=== PATIENT | male | born 1955 | race Caucasian/White ===

== ENCOUNTER → 2024-08-21 09:35 | Outpatient (REF) | payer OTHER, SELFPAY | LOC: HWRAD 09:35 | PROVIDERS: ATTENDING PHYSICIAN Family Medicine | DX: R05.3 Chronic cough (principal) | CPT/HCPCS: 71046 ==

== ENCOUNTER 2025-01-23 11:36 | Observation (INO) | payer OTHER, SELFPAY ==
[2025-01-23] VITALS (8 sets, daily range): BP systolic 120–146; BP diastolic 81–97; BMI 21.2
[2025-01-23 08:24] LABS: % Basophils 0.5 % (0-2); % Eosinophils 0.3 % (0-6); % Immature Granulocytes 0.7 % (0-0.5); % Lymphocytes 9.3 % (20.5-51.1); % Monocytes 13.6 % (1.7-9.3); % Neutrophils 75.6 % (42.2-75.2); Absolute Basophils 0.1 10^3/uL (0-0.2); Absolute Eosinophils 0.1 10^3/uL (0-0.7); Absolute Immature Granulocytes 0.1 10^3/uL (0-0.05); Absolute Lymphocytes 1.5 10^3/uL (1.2-3.4); Absolute Monocytes 2.2 10^3/uL (0.1-0.6); Absolute Neutrophils 12.4 10^3/uL (1.4-6.5); Hemoglobin 14.9 g/dL (13.0-18.0); Mean Corp Hgb Conc. 33.9 g/dL (33.0-37.0); Mean Corpuscular Hgb 31.7 pg (27.0-31.0); Mean Corpuscular Volume 93.6 fL (80.0-94.0); Mean Platelet Volume 9.5 fL (7.4-10.4); Nucleated Red Blood Cells % 0 % (-); Platelet Count 214 10^3/uL (130-400); Red Cell Dist. Width 13.2 % (11.5-14.5); White Blood Cell Count 16.4 10^3/uL (4.8-10.8)
[2025-01-23 08:42] LABS: COVID-19 Antigen Negative (Negative)
[2025-01-23 08:46] LABS: ALT (SGPT) 22 U/L (0-50); AST (SGOT) 25 U/L (17-59); Albumin 4.4 g/dl (3.5-5.0); Alkaline Phosphatase 107 U/L (38-126); Blood Urea Nitrogen 26 mg/dl (9-20); Calcium 9.6 mg/dl (8.4-10.2); Carbon Dioxide 27 mmol/L (22-30); Chloride 104 mmol/L (98-107); Glucose 119 mg/dl (70-99); Potassium 4.5 mmol/L (3.5-5.1); Sodium 140 mmol/L (135-145); Total Bilirubin 0.7 mg/dl (0.2-1.3); Total Protein 7.7 g/dl (6.3-8.2); eGFR > 60.00
--- NOTE | 2025-01-23 09:36 | ED.GENMED ---
History of Present Illness
General
Chief Complaint: Breathing Problem
Time Seen by Provider: 01/23/25 09:36
History of Present Illness
History of Present Illness:
TIME OF INITIAL ENCOUNTER: 9:40 AM
HPI: Patient presents with increasing sputum production associated with cough. He has rather significant symptoms of shortness of breath when he lays back flat. He shows me his yellow-green sputum which is very thick. At 1 point he described a
coughing fit and had a little bit of blood in the sputum but currently there is no blood in the sputum. He reports shortness of breath. He continues to smoke 1 pack/day.
EXAM:
GENERAL: The patient appears somewhat dyspneic
HEENT: Hard of hearing, wearing hearing aids
CARDIOVASCULAR: No murmurs, normal heart rate, regular rhythm, No chest wall tenderness
PULMONARY: Mild respiratory distress, increased work of breathing, markedly decreased breath sounds with wheeze
ABDOMEN: Soft with no peritoneal signs, no tenderness
NEUROLOGIC: Excellent strength all extremities, no coordination deficits
PSYCHIATRIC: Appropriate mental status, normal insight and judgement
EXTREMITIES: Nontender, no edema, moves all extremities equally
SKIN: No rash, no lesions
NUMBER AND COMPLEXITY OF PROBLEMS ADDRESSED AT THE ENCOUNTER
� Chronic conditions affecting care: Non-Hodgkin's lymphoma
� Acute Exacerbation and/or Progression of Chronic Illness: This is an acute problem
� Differential Diagnosis includes: Undiagnosed COPD, bronchitis, chronic bronchitis, pneumonia
AMOUNT AND/OR COMPLEXITY OF DATA TO BE REVIEWED AND ANALYZED
� I performed an independent evaluation of and my interpretation is:
EKG: Sinus 104, baseline artifact, suspect LAE based on inverted P wave in V2
CT:
X-rays: Chest x-ray shows no acute abnormality however is suggestive of COPD
Laboratory Studies: White count 16.4(New), chemistries unremarkable, COVID flu negative,
Other:
� Review of other/old records: I reviewed records, the patient had a stress echo in 2021 that showed no regional wall motion abnormality and normal EF
� Clinical information was obtained by an independent historian: None needed
� Prescriptions/Medications Considered but not given:
� Further testing considered but not performed:
RISK OF COMPLICATIONS AND/OR MORBIDITY OR MORTALITY OF PATIENT MANAGEMENT
� Social determinants of health affecting care: Lives at home, is a smoker
� Discussion with other providers: Dr. Rice for admission
� Escalation of care including admission/observation vs risk of discharge considered: The patient presents with shortness of breath, wheeze, sputum production, and is a 1 pack/day smoker. Although chest x-ray shows no acute
abnormality, it is suggestive of COPD. Giving nebs, steroids, and I did give a dose of azithromycin.
ANY OTHER UPDATES:
Past History
Past History
ED Past Medical History: Negative None
ED Past Surgical History: Other (bilateral ingunial hernia repair as a child)
Social History
Tobacco: Smoker (1ppd)
Alcohol: Occasional
Drug: None
Personal:
Living: with family
Phy Exam
Physical Exam
Physical Exam:
See HPI
Scores
Heart Failure Risk
Heart Failure Risk Score: Not Applicable
Course
Orders/Labs/Results
Orders:
Orders
01/23/25 07:34
Electrocardiogram (*1) Urgent
Reason for Study: Shortness of Breath
EKG- Treatment ONCE
Chest [CR Chest - 2 Views ] Urgent
Comment:
Reason For Exam: cough
01/23/25 08:09
COVID-19 Antigen Urgent
Source: Nasal Swab
Complete Blood Count/With Diff Urgent
Comprehensive Metabolic Panel Urgent
Influenza A+B Rapid Molecular Urgent
ROZ Source: Nasal Swab
Specimen Description:
01/23/25 09:45
Ipratropium/Albuterol Sulfate [Duoneb] 3 ml INH R NOW STA
MethylPREDNISolone PF [Solu-Medrol Pf] 125 mg IV NOW STA
01/23/25 09:46
Azithromycin 500 mg/250 ml [Zithromax Infusion] 500 mg in 250 ml IV NOW
Ipratropium/Albuterol Sulfate [Duoneb] 3 ml INH R NOW STA
01/23/25 11:18
Admit/Transfer Patient As Directed
Co-Sign Provider:
Level of Care: Observation services
Assign to:: Medical/Surgical
Physician / Group: Hospitalist
Diagnosis: Acute bronchitis, Acute hypoxic resp insufficiency
Code Status As Directed
Resuscitation Status: Full Code
PRN Pain Medication Management As Directed
May give lesser potent ordered pain med per pt: Yes
preference::
Protocol:: Medication orders for pain may be administered in a
manner that supports deferring to patient preference
when the pt is:
- Requesting an ordered lesser potent pain medication.
Least to most potent pain medications are defined
as: acetaminophen < NSAID < tramadol < opioids
(morphine, oxycodone, hydromorphone).
- Requesting a lesser dose of the same medication IF
ORDERED.
- Requesting a less intrusive route of administration
if both routes are prescribed by the provider (PO <
IV).
01/23/25 11:20
Respiratory Culture/Gram Stain Urgent
ROZ Source: Sputum
Specimen Description:
01/23/25 11:25
Urinalysis Reflex To Culture Routine
Abnormal Lab Results
01/23/25
08:09
WBC 16.4 H 10^3/uL
(4.8-10.8)
MCH 31.7 H pg
(27.0-31.0)
Abs Immat Gran (auto) 0.1 H 10^3/uL
(0-0.05)
Absolute Neuts (auto) 12.4 H 10^3/uL
(1.4-6.5)
Absolute Monos (auto) 2.2 H 10^3/uL
(0.1-0.6)
Immature Gran % 0.7 H %
(0-0.5)
Neutrophils % 75.6 H %
(42.2-75.2)
Lymphocytes % 9.3 L %
(20.5-51.1)
Monocytes % 13.6 H %
(1.7-9.3)
BUN 26 H mg/dl
(9-20)
Glucose 119 H mg/dl
(70-99)
01/23/25 08:09
01/23/25 08:09
Vital Signs
Initial and Last Documented VS:
Initial Vital Signs
Temp Pulse Resp BP Pulse Ox
37.4 C 110 20 132/86 90
01/23/25 07:37 01/23/25 07:37 01/23/25 07:37 01/23/25 07:37 01/23/25 07:37
Last Documented Vital Signs
Temp Pulse Resp BP Pulse Ox
37.4 C 106 35 123/81 98
01/23/25 07:37 01/23/25 11:00 01/23/25 10:10 01/23/25 11:00 01/23/25 10:45
*Critical Care Note
Total Time (30-74mins, 75-104mins- exclusive of procedures): Not Applicable
ED Attending Note
-
Portions of this chart may have been created with voice recognition software.� Occasional wrong word or��sound alike� substitutions may have occurred due to the inherent limitations of voice recognition software.
Discharge Plan
Departure
Patient Disposition: Admit
Date of Disposition: 01/23/25
Time of Disposition: 09:51
Presentation/result/management discussed w/ accepting MD/DO: Hospitalist
Discharge Problem:
Bronchitis
Prescriptions:
No Action
cephalexin [Keflex] 500 MG capsule
500 mg PO Q6 Qty: 28 0RF
hydrocodone-acetaminophen [Vicodin] 1 EACH tablet
1 ea PO Q6HPRN PRN (Reason: pain) Qty: 12 0RF
Referrals:
Jackson Miller MD [Family Provider] -
Interventions
Interventions:
*Risk Screen - Suicide Last Done: 01/23/25 07:37
*General Assessment Last Done: 01/23/25 07:37
ED- Cardiac Assessment Last Done: 01/23/25 10:11
ED- Pulmonary Assessment Last Done: 01/23/25 10:10
Discharge Date and Time
Print Language: COLOMBIAN
[2025-01-23] MEDS: DUONEB 3 ML INH ×3 (10:02→20:35)
[2025-01-23] MEDS: ZITHROMAX INFUSION 250 IV (10:05)
[2025-01-23] MEDS: SOLU-MEDROL PF 125 MG IV (10:05)
--- NOTE | 2025-01-23 10:24 | HPS.HSE ---
Family Physician
-
Family Physician: Jackson Miller
Chief Complaint
-
Cough with sputum production
History of Present Illness
69-year-old male presented to the hospital with cough and sputum production. Also had some wheezing sputum is yellowish-green in color. Patient still smokes a pack a day. [place] warm the other day. No chest pain.
Medical History
Past Medical History
Past Medical History: Reports Other
Additional Past Medical History:
Arthritis, large B-cell lymphoma diagnosed 11 years ago and treated at [facility] in remission
Past Surgical History: Reports Other
Additional Past Surgical History:
Bilateral hernia repair
Social History
Tobacco: Smoker (1 pack a day)
Alcohol: None
Employment: Employed ([employer] Coordinator)
Family History
Family History: Not pertinent
Allergies / Home Medications
Allergies reflects when Allergies were last updated in [employer].
Home Medications with original date entered in [employer]
Allergy/Medication List:
Not on any medicines
Review of Systems
-
A 12 point ROS was completed and negative except as noted: Yes
Respiratory: Reports Cough and Trouble Breathing
Cardiac: Denies Chest Pain
: Reports Frequency; Denies Dysuria
Physical Exam
Vital Signs
Vital Signs
Temp Pulse Resp BP Pulse Ox
99.3 F 102 35 146/96 93
01/23/25 07:37 01/23/25 10:10 01/23/25 10:10 01/23/25 10:00 01/23/25 10:10
Physical Exam
General: Other (cough)
Respiratory: Rhonchi
Cardiac: S1/S2 and Regular Rhythm
GI: Soft and Normal Bowel Sounds
Neuro: Awake, AO x 3 and Nonfocal/grossly intact
Psych: Intact Judgment/Insight
Laboratory Results
-
01/23/25 08:09
01/23/25 08:09
Laboratory Results
Total Bilirubin 0.7 mg/dl (0.2-1.3) 01/23/25 08:09
AST 25 U/L (17-59) 01/23/25 08:09
ALT 22 U/L (0-50) 01/23/25 08:09
Alkaline Phosphatase 107 U/L (38-126) 01/23/25 08:09
Data Reviewed
-
Diagnostic Radiology: Image Personally Visualized and interpreted (Chest x-ray reviewed by me-no acute changes. Hyperinflated lungs)
Impression/Plan
-
IMPRESSION/PLAN:
# Acute hypoxic respiratory insufficiency
Likely secondary to acute bronchitis
Possible undiagnosed COPD with exacerbation
Patient needs to stop smoking-cessation counseling
Admit to observation
Nebulizer treatments 4 times daily and as needed
Mucolytic's
Antibiotics-Zithromax
Oxygen supplementation as needed
Steroids-Decadron 4 IV every 8
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
# History of diffuse large B-cell lymphoma treated at [facility] 11 years ago-in remission
# Increased urinary frequency-check urinalysis. Patient thinks that he has prostate issues. Add Flomax. He is aware that he still needs to follow-up with urologist but he is uncomfortable with rectal exam importance of following up to screen for
cancer discussed with the patient.
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 DDD C6/C7
# Active smoker-cessation counseling. Patient declined nicotine patch
# DVT prophylaxis-Lovenox
# Full code
[2025-01-23] MEDS: DUONEB INH ×3 (12:49→16:26)
[2025-01-23] MEDS: MUCINEX 600 MG PO ×2 (13:49→21:35)
[2025-01-23] MEDS: DECADRON 4 MG IV ×2 (13:49→21:35)
[2025-01-23] MEDS: LOVENOX 40 MG SC (17:00)
[2025-01-23 18:59] LABS: Urine Albumin 2+ (Neg - Trace); Urine Bilirubin Negative (Negative); Urine Character Slightly Cloudy (Clear); Urine Color Yellow; Urine Glucose 3+ (Negative); Urine Ketone 2+ (Negative); Urine Leukocyte Negative (Negative); Urine Nitrite Negative (Negative); Urine Occult Blood 1+ (Negative); Urine Specific Gravity 1.025 (<1.030); Urine Urobilinogen 1+ (Neg - 1+)
[2025-01-23 19:11] LABS: Urine Squamous Cell 0-2 /LPF (Few)
[2025-01-23 19:14] LABS: Urine Mucus Few
[2025-01-23 19:15] LABS: Urine Bacteria Few (Negative); Urine White Cell 16-20 /HPF (0-5)
[2025-01-23] MEDS: PULMICORT 0.5 MG INH (20:35)
[2025-01-23] MEDS: FLOMAX 0.4 MG PO (21:35)
[2025-01-24] MEDS: DECADRON 4 MG IV ×2 (04:03→13:15)
[2025-01-24 07:00] VITALS: BP 121/82
[2025-01-24 07:03] LABS: Blood Urea Nitrogen 33 mg/dl (9-20); Calcium 9.2 mg/dl (8.4-10.2); Carbon Dioxide 30 mmol/L (22-30); Chloride 107 mmol/L (98-107); Estimated Creatinine Clearance 101 ml/min; Glucose 176 mg/dl (70-99); Sodium 140 mmol/L (135-145); eGFR > 60.00
[2025-01-24] MEDS: DUONEB 3 ML INH ×4 (07:25→19:47)
[2025-01-24] MEDS: PULMICORT 0.5 MG INH ×2 (07:25→19:47)
[2025-01-24] MEDS: ZITHROMAX 500 MG PO (10:07)
[2025-01-24] MEDS: MUCINEX 600 MG PO ×2 (10:07→20:39)
[2025-01-24] MEDS: STERILE WATER FOR INJECTION 10 ML IV (10:07)
[2025-01-24] MEDS: ROCEPHIN 1000 MG IV (10:07)
[2025-01-24 15:00] VITALS: BP 132/81
--- NOTE | 2025-01-24 15:36 | W.PN.HOSP.TC ---
Today's Communication/Plan
-
Wean oxygen as tolerated
Continue antibiotics
Wait for urine cultures and sputum cultures
Assessment / Plan
Assessment / Plan
69-year-old man with shortness of breath and cough
Feels better
CVS: S1-S2 normal
Chest: Short rhonchi, better air entry
Abdomen: Soft, NT / Bowel sounds present
Extremities: No edema, normal pulses
TAPER OPERATOR: Non focal exam
# Acute hypoxic respiratory insufficiency
Likely secondary to acute bronchitis
Possible undiagnosed COPD with exacerbation
Patient needs to stop smoking-cessation counseling
Nebulizer treatments 4 times daily and as needed
Mucolytic's
Antibiotics-Zithromax
Oxygen supplementation as needed, wean as tolerated
Steroids-Decadron 3 mg IV every 12
# Abnormal urinalysis-treat as UTI until cultures are back. Add ceftriaxone
# Hyperglycemia secondary to steroids
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
# History of diffuse large B-cell lymphoma treated at [facility] 11 years ago-in remission
# Increased urinary frequency-check urinalysis. Patient thinks that he has prostate issues. Added Flomax. He is aware that he still needs to follow-up with urologist but he is uncomfortable with rectal exam importance of following up to screen
for cancer discussed with the patient.
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 DDD C6/C7
# Active smoker-cessation counseling. Patient declined nicotine patch
# DVT prophylaxis-Lovenox
# Full code
Anticipated Discharge: Within 24 hours
Subjective/Interval History
-
Date of Service: January 24, 2025
Objective Data
-
Labs:
Laboratory Results
01/24/25
06:22
Sodium 140
Potassium 5.0
Chloride 107
Carbon Dioxide 30
BUN 33 H
Creatinine 0.7
Glucose 176 H
Calcium 9.2
Vital Signs:
Vital Signs
Temp Pulse Resp BP Pulse Ox
97.9 F 86 18 121/82 93
01/24/25 07:00 01/24/25 15:26 01/24/25 15:26 01/24/25 07:00 01/24/25 13:27
I&O
01/23/25 01/24/25 01/25/25
06:59 06:59 06:59
Output Total 300 / 300
Balance -300 / -300
--- NOTE | 2025-01-24 16:26 | CM ---
GUERIN letter given, along with AD information, case therapist reviewed patient's chart and met with patient and patient lives with his spouse and grandson, patient is independent with adl's and ambulation, patient is working, patient is on oxygen and
did not require oxygen prior to admission.
PCP Dr. Miller
Pharmacy: [facility]
Plan; Home when stable, check for any oxygen needs at discharge.
[2025-01-24] MEDS: LOVENOX 40 MG SC (18:01)
[2025-01-24] MEDS: DECADRON 3 MG IV (20:39)
[2025-01-24] MEDS: FLOMAX 0.4 MG PO (20:39)
[2025-01-24 23:52] VITALS: BP 130/81
[2025-01-25] MEDS: DECADRON 3 MG IV ×2 (04:06→09:11)
[2025-01-25 04:55] LABS: Hematocrit 39.3 % (39.0-52.0); Mean Corp Hgb Conc. 33.1 g/dL (33.0-37.0); Mean Corpuscular Hgb 31.9 pg (27.0-31.0); Mean Corpuscular Volume 96.3 fL (80.0-94.0); Mean Platelet Volume 9.8 fL (7.4-10.4); Platelet Count 249 10^3/uL (130-400); Red Blood Cell Count 4.08 10^6/uL (4.70-6.10); Red Cell Dist. Width 13.5 % (11.5-14.5); White Blood Cell Count 19.9 10^3/uL (4.8-10.8)
[2025-01-25 05:23] LABS: Blood Urea Nitrogen 31 mg/dl (9-20); Calcium 9.5 mg/dl (8.4-10.2); Carbon Dioxide 29 mmol/L (22-30); Chloride 106 mmol/L (98-107); Estimated Creatinine Clearance 118 ml/min; Glucose 137 mg/dl (70-99); Potassium 5.1 mmol/L (3.5-5.1); Sodium 140 mmol/L (135-145); eGFR > 60.00
[2025-01-25 07:00] VITALS: BP 138/87
[2025-01-25] MEDS: DUONEB 3 ML INH ×4 (07:50→19:56)
[2025-01-25] MEDS: PULMICORT 0.5 MG INH ×2 (07:54→19:55)
[2025-01-25] MEDS: ZITHROMAX 500 MG PO (07:59)
[2025-01-25] MEDS: MUCINEX 600 MG PO ×2 (07:59→20:59)
[2025-01-25] MEDS: ROCEPHIN 1000 MG IV (09:13)
[2025-01-25] MEDS: STERILE WATER FOR INJECTION 10 ML IV (09:13)
--- NOTE | 2025-01-25 11:17 | CM ---
CM reviewed chart, patient seen bedside. Patient currently off oxygen, denies any needs to CM at this time. CM will continue to follow for all discharge planning needs.
Plan; likely home no needs.
[2025-01-25 15:00] VITALS: BP 138/86
--- NOTE | 2025-01-25 15:40 | W.PN.HOSP.TC ---
Today's Communication/Plan
-
sputum cx pending
change AB to Levaquin
Change steroids to PO
Assessment / Plan
Assessment / Plan
69-year-old man with shortness of breath and cough
Feels better, still has a cough
CVS: S1-S2 normal
Chest: No rhonchi
Abdomen: Soft, NT / Bowel sounds present
Extremities: No edema, normal pulses
GRANITE FABRICATOR: Non focal exam
# Acute hypoxic respiratory insufficiency
Likely secondary to acute bronchitis
Possible undiagnosed COPD with exacerbation
Patient needs to stop smoking-cessation counseling
Nebulizer treatments 4 times daily and as needed
Mucolytic's
Antibiotics-Zithromax
Off O2
Steroids-changed to Pred
Sputum Cx pending.
Patient stated that this is the 3rd or 4th episode since September that he has had this respiratory infection.
He was treated with Tomás Roque as outpatient.
I will add inhaled steroids while here
Called micro lab they do not have any sputum culture results yet
In the meantime I will change antibiotics to Levaquin and wait for cultures.
# Leucocytosis may be due to steroids. Will repeat.
# Abnormal urinalysis-UTI ruled out UTI.
# Hyperglycemia secondary to steroids
# Mild aneurysmal dilatation of the ascending thoracic aorta at 4.2 cm.
# History of diffuse large B-cell lymphoma treated at [facility] 11 years ago-in remission
# Increased urinary frequency-
Patient thinks that he has prostate issues. Added Flomax.
He is aware that he still needs to follow-up with urologist but he is uncomfortable with rectal exam importance of following up to screen for cancer discussed with the patient.
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 DDD C6/C7
# Active smoker-cessation counseling. Patient declined nicotine patch
# DVT prophylaxis-Lovenox
# Full code
D/W RN
Anticipated Discharge: Within 24 hours
Subjective/Interval History
-
Date of Service: January 25, 2025
Objective Data
-
Labs:
Laboratory Results
01/25/25
04:22
WBC 19.9 H
Hgb 13.0
Hct 39.3
Plt Count 249
Sodium 140
Potassium 5.1
Chloride 106
Carbon Dioxide 29
BUN 31 H
Creatinine 0.6 L
Glucose 137 H
Calcium 9.5
Vital Signs:
Vital Signs
Temp Pulse Resp BP Pulse Ox
97.6 F 103 22 138/86 92
01/25/25 15:00 01/25/25 15:00 01/25/25 15:00 01/25/25 15:00 01/25/25 15:00
I&O
01/24/25 01/25/25 01/26/25
06:59 06:59 06:59
Intake Total 1919
Output Total 300 / 300
Balance -300 / -300 1919
[2025-01-25] MEDS: LEVAQUIN 750 MG PO (17:52)
[2025-01-25] MEDS: LOVENOX 40 MG SC (17:52)
[2025-01-25] MEDS: DELTASONE 50 MG PO (17:52)
[2025-01-25 18:46] LABS: Hepatitis C Antibody Negative (Negative)
[2025-01-25] MEDS: FLOMAX 0.4 MG PO (20:59)
[2025-01-25 23:36] VITALS: BP 126/81
[2025-01-26 07:00] VITALS: BP 157/104
[2025-01-26] MEDS: PULMICORT 0.5 MG INH (07:33)
[2025-01-26] MEDS: DUONEB 3 ML INH ×3 (07:33→15:16)
[2025-01-26 07:41] LABS: Hematocrit 41.4 % (39.0-52.0); Hemoglobin 13.9 g/dL (13.0-18.0); Mean Corp Hgb Conc. 33.6 g/dL (33.0-37.0); Mean Corpuscular Hgb 31.6 pg (27.0-31.0); Mean Corpuscular Volume 94.1 fL (80.0-94.0); Mean Platelet Volume 9.7 fL (7.4-10.4); Platelet Count 270 10^3/uL (130-400); Red Cell Dist. Width 13.4 % (11.5-14.5)
[2025-01-26] MEDS: DELTASONE 50 MG PO (08:37)
[2025-01-26] MEDS: LEVAQUIN 750 MG PO (08:37)
[2025-01-26] MEDS: MUCINEX 600 MG PO (08:37)
--- NOTE | 2025-01-26 10:18 | W.PN.HOSP.TC ---
Today's Communication/Plan
-
Discharge
Assessment / Plan
Assessment / Plan
69-year-old man with shortness of breath and cough
Dressed to go home. Cant stay here any more. Cant sleep here. Feels a lot better
CVS: S1-S2 normal
Chest: CTA
Abdomen: Soft, NT / Bowel sounds present
Extremities: No edema
# Acute hypoxic respiratory insufficiency
Likely secondary to acute bronchitis
Possible undiagnosed COPD with exacerbation
Patient needs to stop smoking-cessation counseling
Mucolytic's
Off O2
Steroids-changed to Pred
Sputum Cx pending. Called microbiology lab yesterday and today. Today they feel that this is H. influenzae
Patient stated that this is the 3rd or 4th episode since September that he has had this respiratory infection.
He was treated with Trelezahra Ellipta as outpatient.
Change antibiotics back to cephalosporins based on the culture data
# Leucocytosis may be due to steroids. Trending down
# Abnormal urinalysis-UTI ruled out UTI.
# Hyperglycemia secondary to steroids
# Mild aneurysmal dilatation of the ascending thoracic aorta at 4.2 cm.
# History of diffuse large B-cell lymphoma treated at [place] 11 years ago-in remission
# Increased urinary frequency-
Patient thinks that he has prostate issues. Added Flomax. Patient feels this helped him
He is aware that he still needs to follow-up with urologist but he is uncomfortable with rectal exam importance of following up to screen for cancer discussed with the patient.
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 DDD C6/C7
# Active smoker-cessation counseling. Patient declined nicotine patch
# DVT prophylaxis-Lovenox
# Full code
D/W RN
Spoke to microbiology lab
Discussed with the patient regarding pulmonary follow-up. Encouraged him to make an appointment while here through the band saw operator. Smoking cessation
Patient would like to leave as soon as possible. I will follow-up on the cultures. Discharge with Cefdinir
More than 30 minutes spent in discharge including
Final examination of the patient
Summarizing hospital stay
Instructions for continuing care to all relevant caregivers
Preparation of discharge records, prescriptions, and referral forms
Total time spent (in minutes): 33 min
Anticipated Discharge: Today
Subjective/Interval History
-
Date of Service: January 26, 2025
Objective Data
-
Labs:
Laboratory Results
01/26/25
07:00
WBC 18.0 H
Hgb 13.9
Hct 41.4
Plt Count 270
Vital Signs:
Vital Signs
Temp Pulse Resp BP Pulse Ox
97.5 F 66 16 157/104 96
01/26/25 07:00 01/26/25 07:36 01/26/25 07:36 01/26/25 07:00 01/26/25 07:36
I&O
01/25/25 01/26/25 01/27/25
06:59 06:59 06:59
Intake Total 1919 1380 / 1380
Balance 1919 1380 / 1380
--- NOTE | 2025-01-26 10:24 | W.DS.TRANS ---
Addendum entered and electronically signed by Bandar Metcalf MD 01/26/25 15:07:
Dictation- [id number]
Original Note:
DC Summary - Clinical Studies Specialist
-
Discharge Instructions:
Discharge Diagnosis/Procedures Acute Bronchitis
Acute hypoxic respiratory insufficiency
Diet As tolerated
Activity As tolerated
Driving Restrictions As prior to admission
Instructions:
Stand-Alone Forms:
Changes to Home Medications: Yes
Discharge Medications:
DC Medications w/original date entered in [facility]
therapeutic multivitamin 1 tab PO DAILY Supplement 01/23/25
albuterol sulfate 90 mcg/actuation aerosol inhaler 2 puff inhalation Q6H PRN shortness of breath or wheezing #8.5 grams 01/26/25
cefdinir 300 mg capsule 300 mg PO Q12H Lung/breathing issues #14 caps 01/26/25
fluticasone fur. 100 mcg-umeclid 62.5 mcg-vilant 25 mcg inhalat.powder (Trelegy Ellipta) 1 inh inhalation DAILY Lung/breathing issues #0 ea 01/26/25
guaifenesin 600 mg tablet, extended release 12 hr 600 mg PO Q12 Lung/breathing issues #0 tabs 01/26/25
prednisone 10 mg tablet See Rx Instructions .Route .COMPLEX Lung/breathing issues #30 tabs 01/26/25
tamsulosin 0.4 mg capsule 0.4 mg PO HS Urinary issue #30 caps 01/26/25
Home Medication Changes
albuterol sulfate 90 mcg/actuation aerosol inhaler 2 puff inhalation Q6H PRN shortness of breath or wheezing #8.5 grams 01/26/25
cefdinir 300 mg capsule 300 mg PO Q12H Lung/breathing issues #14 caps 01/26/25
guaifenesin 600 mg tablet, extended release 12 hr 600 mg PO Q12 Lung/breathing issues #0 tabs 01/26/25
prednisone 10 mg tablet See Rx Instructions .Route .COMPLEX Lung/breathing issues #30 tabs 01/26/25
tamsulosin 0.4 mg capsule 0.4 mg PO HS Urinary issue #30 caps 01/26/25
Pending Results: Yes
Additional Pending Results:
sputum Cx
--- NOTE | 2025-01-26 10:55 | CM ---
CM reviewed chart, patient seen bedside on phone, confirms he has transportation home. Patient denies needs from CM, will continue to follow for all discharge planning needs.
Plan; home no needs.
[2025-01-26] MEDS: STERILE WATER FOR INJECTION 10 ML IV (12:33)
[2025-01-26] MEDS: ROCEPHIN 1000 MG IV (12:33)
[2025-01-26 15:00] VITALS: BP 123/70
== END 2025-01-26 17:06 | disposition home or self-care (01) ==
LOC: 4 WEST ACU 11:36
PROVIDERS: Student in an Organized Health Care Education/Training Program; ADMITTING PHYSICIAN Hospitalist; EMERGENCY PHYSICIAN Emergency Medicine; FAMILY PHYSICIAN Family Medicine
DX: J20.9 Acute bronchitis, unspecified (principal); R06.02 Shortness of breath; R09.02 Hypoxemia; R06.89 Other abnormalities of breathing; R05.9 Cough, unspecified; R00.0 Tachycardia, unspecified; R06.2 Wheezing; R35.0 Frequency of micturition; H91.90 Unspecified hearing loss, unspecified ear; C85.1A Unspecified B-cell lymphoma, in remission; I71.21 Aneurysm of the ascending aorta, without rupture; M48.061 Spinal stenosis, lumbar region without neurogenic claudication; M51.369 Other intervertebral disc degeneration, lumbar region without mention of lumbar back pain or lower extremity pain; M51.26 Other intervertebral disc displacement, lumbar region; M50.323 Other cervical disc degeneration at C6-C7 level; B96.3 Hemophilus influenzae [H. influenzae] as the cause of diseases classified elsewhere; F17.210 Nicotine dependence, cigarettes, uncomplicated; R09.89 Other specified symptoms and signs involving the circulatory and respiratory systems; T38.0X5A Adverse effect of glucocorticoids and synthetic analogues, initial encounter; R73.9 Hyperglycemia, unspecified; Z97.4 Presence of external hearing-aid; Z11.52 Encounter for screening for COVID-19
CPT/HCPCS: 71046; 80048; 80053; 81003; 81015; 85025; 85027; 86803; 87070; 87077; 87086; 87185; 87205; 87502; 87811; 93005; 94640; 96374; 96375; 99285; 99406; G0378

== ENCOUNTER → 2025-02-20 09:46 | Outpatient (REF) | payer OTHER, SELFPAY | LOC: RAD 09:46 | PROVIDERS: ATTENDING PHYSICIAN Radiology Diagnostic Radiology; FAMILY PHYSICIAN Family Medicine | DX: Z13.89 Encounter for screening for other disorder (principal) | CPT/HCPCS: 70030 ==

== ENCOUNTER → 2025-02-22 19:31 | Outpatient (REF) | payer OTHER, SELFPAY | LOC: MRI 3T 19:31 | PROVIDERS: ATTENDING PHYSICIAN Surgery; FAMILY PHYSICIAN Family Medicine | DX: R97.20 Elevated prostate specific antigen [PSA] (principal) | CPT/HCPCS: 72197; A9575 ==